=== PATIENT | male | born 1940 | race African-American/Black ===

== ENCOUNTER → 2017-03-02 | Outpatient (CLI) | payer OTHER ==
[~2017-03-02] MED LIST: ALLOPURINOL 30300 M2 PO; HYDRALAZINE 2525 MG PO; LEVOTHYROXINE 0.1 MG PO; LISINOPRIL20 MG PO; PLAVIX 75 MG TA75 M1 PO; PRINIVIL20 MG PO; TOPROL XL25 MG PO
== END ==
LOC: CAT 09:46
DX: I25.10 Atherosclerotic heart disease of native coronary artery without angina pectoris (principal); K42.9 Umbilical hernia without obstruction or gangrene

== ENCOUNTER → 2017-03-14 | Outpatient (CLI) | payer OTHER ==
[~2017-03-14] MED LIST changes: +CELEXA20 MG PO; +LOPRESSOR25 PO
--- NOTE | ~2017-03-14 | 2DMMODE ---
[facility] [address] [place] [address] 2 D/M-MODE ECHOCARDIOGRAM Name: MARIO JUÁREZ [id number] Admission: 03/14/17 Attend Phys: Sameer Barcenas Discharge: Date of : 36 Date of Service: 03/14/17 1500 Report #: [id number] THIS REPORT FOR: //name// APPROVED REPORT Study performed: 03/14/2017 13:59:14 EXAM: Comprehensive 2D, Doppler, and color-flow Echocardiogram Patient Location: Out-Patient Status: routine Other Information Study Quality: Fair Technically limited study due to body habitus. Exam done with patient in wheelchair. Echo Enhancing Agent Indication: Endocardial border delineation Agent(s) / Amount(s) Used: Definity 2 cc 2D Dimensions RVDd: 37.73 mm LVEF(%): 59.35 (>50%) IVSd: 14.83 (7-11mm) LVOT Diam: 21.63 (18-24mm) LVDd: 44.91 mm PWd: 13.08 (7-11mm) LVDs: 30.83 (25-40mm) Aortic Root: 40.57 mm Resendez's LVEF: 59.35 % Volumes Left Atrial Volume (Systole) Single Plane 4CH: 74.12 mL Single Plane 2CH: 86.21 mL LA ESV Index: 37.00 mL/m2 Aortic Valve AoV Peak Nik.: 1.66 m/s AO Peak Gr.: 10.98 mmHg LVOT Max P.29 mmHg LVOT Max V: 1.44 m/s GORDON Vmax: 3.19 cm2 Mitral Valve E/A Ratio: 0.8 MV Decel. Time: 447.22 ms MV E Max Nik.: 0.61 m/s [facility] [place] [address] 2 D/M-MODE ECHOCARDIOGRAM Name: MARIO JUÁREZ Room #: REG Beka#: [id number] Admission: 03/14/17 Attend Phys: Sameer Barcenas Discharge: Date of : 36 Date of Service: 03/14/17 1500 Report #: [id number] MV A Nik.: 0.79 m/s MV PHT: 129.69 ms Pulmonary Valve PV Peak Nik.: 1.11 m/s PV Peak Gr.: 4.94 mmHg Tricuspid Valve RAP Estimate: 5.00 mmHg Left Ventricle The left ventricle is normal size. Mild to moderate concentric left ventricular hypertrophy. Left ventricular systolic function is normal. LVEF is 55%. Grade I - abnormal relaxation pattern. Right Ventricle Right ventricle is not well visualized. Atria Left atrium is mildly dilated. The right atrium size is normal. Aortic Valve The Aortic valve is sclerotic. Mild aortic regurgitation. There is no aortic valvular stenosis. Mitral Valve The mitral valve is normal in structure. Mild mitral regurgitation. Tricuspid Valve The tricuspid valve is normal in structure. There is no tricuspid valve regurgitation noted. Pulmonic Valve The pulmonary valve is normal in structure. Trace pulmonic regurgitation. Great Vessels Aortic root is 4.1cm Ascending aorta is not well visualized. IVC is normal in size and collapses >50% with inspiration. Pericardium There is no pericardial effusion. <Conclusion> [facility] [address] [place] [address] 2 D/M-MODE ECHOCARDIOGRAM Name: MARIO JUÁREZ [facility] [id number] Admission: 03/14/17 Attend Phys: Sameer Barcenas Discharge: Date of : 36 Date of Service: 03/14/17 1500 Report #: [id number] The left ventricle is normal size. LVEF is 55%. Right ventricle is not well visualized. Left atrium is mildly dilated. The Aortic valve is sclerotic. Mild aortic regurgitation. The mitral valve is normal in structure. Mild mitral regurgitation. The tricuspid valve is normal in structure. The pulmonary valve is normal in structure. Trace pulmonic regurgitation. Aortic root is 4.1cm Ascending aorta is not well visualized. <ELECTRONICALLY SIGNED> By: Sameer Hart MD 03/14/171499 1500 Gerard Hart MD /INF
== END ==
LOC: CV 12:58
DX: Z01.818 Encounter for other preprocedural examination (principal)

== ENCOUNTER 2017-03-16 05:36 | Inpatient (IN) | payer OTHER ==
[~2017-03-16] VITALS: Ht 175.3 cm; Wt 127.6 kg
--- NOTE | ~2017-03-16 | O ---
[facility] [place] [address] [place] [address] OPERATIVE REPORT Name: MARIO JUÁREZ Room #: 453-P [facility] IN M.R.#: [id number] Admission: 03/16/17 Attend Phys: Jarret Renteria MD Discharge: Date of : 36 Report #: [id number] THIS REPORT FOR: //name// CC: Stan Renteria DATE OF SERVICE: 03/16/2017 PREOPERATIVE DIAGNOSES: 1. Incarcerated ventral hernia, symptomatic. 2. Abdominal pain. POSTOPERATIVE DIAGNOSES: 1. Incarcerated ventral hernia. 2. Significant intra-abdominal adhesions with chronic inflammatory response along the anterior abdominal wall surrounding and interloop abscess. 3. Small-bowel perforation, which had been contained by several loops of bowel. 4. Foreign body protruding from bowel in the center of this inflammatory process consistent with chronic perforation. 5. Intra-abdominal interloop abscess. SURGEON: Waldemar Green MD REGIONAL LIAISON: Iván Fortune MD ANESTHESIA: General endotracheal anesthesia and local anesthetic. ESTIMATED BLOOD LOSS: 200 mL. IV FLUIDS: 2500 of crystalloid. URINE OUTPUT: 150 mL per Reinoso catheter. PROCEDURES PERFORMED: 1. Robotic lysis of adhesions, time 75 minutes. 2. Robotic drainage of interloop abscess. 3. Robotic extraction of small-bowel foreign body. 4. Conversion to exploratory laparotomy. 5. Small-bowel resection times 3 with primary anastomosis. 6. Application of external negative pressure therapy device (Prevena device). SPECIMENS TO PATHOLOGY: 1. Culture of the anterior abdominal wall interloop abscess. 2. Mid jejunum, small-bowel resection 24 cm. 3. Distal jejunum, small-bowel resection 8 cm. 4. Ileal or ileum, small-bowel resection of 10 cm. [facility] [address] [place] [address] OPERATIVE REPORT Name: MARIO JUÁREZ Room #: 453-P [facility] IN [facility].#: [id number] Admission: 03/16/17 Attend Phys: Jarret Renteria MD Discharge: Date of : 38 Report #: [id number] 5. Incarcerated ventral hernia contents. 6. Interloop foreign body, which appeared grossly consistent with a wooden toothpick. COMPLICATIONS: None applicable. DISPOSITION: Guarded to critical care telemetry postoperative. INDICATIONS FOR PROCEDURE: The patient is a very pleasant 77-year-old gentleman, who was referred for abdominal pain and an incarcerated hernia recently. He had reported a chronic hernia in the region of his mid abdomen, which had become more symptomatic over the past 2 weeks. On exam, this was easily palpable and showed no signs of acute peritonitis. He had also shown no symptoms of bowel obstruction. He was quite interested in surgical repair of this hernia and the patient was referred to preanesthesia evaluation for preoperative clearance. Detailed discussion of the risks and benefits of the operation including bleeding, pain, infection, recurrence of the hernia, post-damage to surrounding structures such as bowel, bladder, kidney, ureter, colon, stomach, liver and other nearby structures were all possible, although unlikely, possible need to convert to open, possible need for ostomy and other potentially unforeseen circumstances were all discussed and all questions were answered to the patient's and his family's satisfaction. Written informed consent was obtained. PROCEDURE: The patient was brought to the operating room and placed in a supine position. Timeout was taken to verify the patient's identity and to plan the procedure. SCDs were in place on the lower extremities bilaterally. Preoperative antibiotics were administered. Anesthesia was induced. The patient was intubated. Abdomen was sterilely prepped and draped in standard fashion after hair had been previously clipped using electric clippers prior to sterile prep. A right upper quadrant 5-mm incision was made after local anesthetic had been infiltrated. Direct visual access using a transparent plastic trocar was utilized to enter the peritoneal cavity. Pneumoperitoneum was created and inspection of the viscera showed that no injury had occurred upon entry. There was a significant process of adhesions of small-bowel up around the anterior abdominal wall, especially near the umbilicus, which had not been expected. A right lower quadrant 5-mm port was placed under direct visualization and this was upsized to an 8-mm robotic port. A right lateral 12-mm port was placed under direct visualization using a bariatric trocar. The right upper quadrant 5-mm port was then upsized to an 8-mm robotic port. [place] robotic patient cart was then brought into the field and docked properly. The patient had been placed in the slight reverse Trendelenburg position. Robotic lysis of adhesions was then performed and upon taking down some of the loops of bowel and omentum, which were adherent up to the anterior abdominal wall, a pocket of purulence was encountered. This was burns to off white purulence. Culture was obtained and sent off for microbiologic analysis. [address] [address] OPERATIVE REPORT Name: MARIO JUÁREZ Room #: 453-P ADM IN M.Roxy.#: [id number] Admission: 03/16/17 Attend Phys: Jarret Renteria MD Discharge: Date of : 38 Report #: [id number] Further lysis of adhesions was performed in a painstaking meticulous fashion using sharp dissection, blunt dissection and electrocautery with care to preserve the loops of bowel. Upon exploring the central portion of this inflammatory mass, which contained multiple loops of adherent up around this purulent pocket, a foreign body was identified, initially this was thought to be potentially a poorly digested pill; however, as this was extracted from that site, it became clear that this was a wooden toothpick by visualization, this was extracted and passed off for pathologic analysis. Further inspection of that region showed that there had been what appeared to be a chronic perforation of the small-bowel from that object and this was the source of the significant inflammatory response. Further lysis of adhesions was performed and these loops of bowel were taken down around this region and it was noted that at least 3 areas of small-bowel appeared questionable as far as their viability secondary to the above-mentioned processes. This inflammatory region was also noted to be just deep to the ventral hernia, which had been the initial reason for the operation. The bowel loops were reduced from this area and intraoperative photographs were taken of the ventral hernia defect. Adipose tissue consistent with preperitoneal fat and omentum was reduced from the hernia defect and passed off as incarcerated ventral hernia contents. At this point, inspection of the small-bowel showed that at least 3 areas of question of viability were noted including the area that had been chronically perforated with the foreign body and therefore, decision was made to undock the robotic patient cart device and converted to exploratory laparotomy for planned small bowel resection. The small-bowel was run from ligament of Treitz distal and 3 separate areas showed significant either serosal tears or that perforation as previously described. Small-bowel resection was performed at each of these 3 sites. Initially, the mid jejunum, which had the apparent chronic perforation was resected first using linear cutting stapler with euye-il-fbas anastomosis with blue loads. A 24-cm was resected and primary anastomosis was performed. Further along the distal jejunum, there was another site of significant serosal injury, which did not appear amenable to repair secondary to the friable, chronically edematous nature of that area of the small-bowel, therefore an 8-cm distal jejunal small-bowel resection was performed in similar fashion. Further along toward the mid ileum, a 10-cm section was resected in similar fashion. At each of the sites, the staple line was oversewn with 3-0 PDS imbricating suture. The mesenteric resections had been performed using a LigaSure impact energy device. Hemostasis was also verified along the mesentery at each of these resections and along the mid jejunal mesenteric resection. This was oversewn with 3-0 running PDS locking suture for added hemostatic affect. The small-bowel was then run from terminal ileum back toward the ligament of Treitz on multiple passes and no other obvious areas of injury or perforation were identified. The intraabdominal cavity was then irrigated with copious warm sterile saline and suctioned clear. Tisseel fibrin sealant device was placed over each of the anastomoses and viscera was replaced back into the abdominal cavity. Nasogastric tube was placed within the gastric lumen and this was palpated to be within the body of the stomach. At this point, the abdominal [address] [address] OPERATIVE REPORT Name: MARIO JUÁREZ Room #: 453-P [facility] IN M.R.#: [id number] Admission: 03/16/17 Attend Phys: Jarret Renteria MD Discharge: Date of : 38 Report #: [id number] cavity was closed with a looped #1 PDS running suture times 2, which were joined at the central portion of the incision. Wound was then irrigated with further copious sterile saline and suctioned clear. Skin was closed using skin gerardo. A Prevena external negative pressure therapy device was applied over the incision. The 3 robotic ports along the right lateral abdominal wall were also closed using gerardo and sterile dressings were applied superficial to this. At this point, the case was ended, all instrumentation had been extracted and accounted for. All counts were correct per nursing report. The patient was extubated and taken to the postoperative care unit in stable condition. By: 0915 1248 Waldemar Green MD /mohinder
--- NOTE | ~2017-03-16 | S ---
[facility] [address] [place] [address] SURGICAL PATH RPT PROCEDURE Name: MARIO JUÁREZ Room #: 453-P ADM IN M.R.#: [id number] Admission: 03/16/17 Date of : 36 Discharge: Report #: [id number] Path Case #: [id number] PATHOLOGY REPORT COLLECTION DATE: 03/16/2017 RECEIVED DATE: 03/16/2017 SUBMITTING PHYS: Dr. Waldemar Green OTHER PHYS: Dr. Iván Mancera SPECIMEN(S) RECEIVED: A.Foreign body in the abdominal wall interloop abscess B.Incarcerated hernia sac contents C.Ileum D.Mid jejunum E.Distal jejunum * * * * * * * * * * * * FINAL DIAGNOSIS: A Foreign body in the abdominal wall intra-loop abscess, removal: - 5.2 cm firm material, compatible with foreign body. (GROSS EXAM ONLY) B. Incarcerated hernia sac contents: - Abundant fat necrosis and reactive changes, compatible with hernia sac contents. C. Small bowel, ileum, resection: - Congested small bowel associated with chronic inflammation and fat necrosis of the adipose tissue. - Margins of resection showing viable mucosa. - Negative for dysplasia or malignancy. D. Small bowel, mid jejunum, resection: - Marked acute serositis along with extensive fibrous adhesions as well as abscess formation within bowel wall including perforation. - Margins of resection showing viable mucosa. - Negative for dysplasia or malignancy. E. Small bowel, distal jejunum, resection: - Marked serositis along with fibrous adhesions as well as congested bowel wall including a perforation. - Margins of resection showing viable mucosa. - Negative for dysplasia or malignancy. (IUV:csd; d/t: 03/19/2017) PATHOLOGIST: Michelle Louise M.D. REPORT ELECTRONICALLY SIGNED BY: Michelle Louise M.D. DATE/TIME: 03/19/2017 16:41 * * * * * * * * * * * * [facility] [address] [place] [address] SURGICAL PATH RPT PROCEDURE Name: FRANCKMARIO Angus Room #: 453-P [facility] IN [facility]#: [id number] Admission: 03/16/17 Date of : 36 Discharge: Report #: [id number] Path Case #: [id number] GROSS PATHOLOGY: A. The specimen is received in formalin labeled "Mario Franck, foreign body in the abdominal wall intraloop abscess". Received is a segment of shepherd-burns possible wood measuring 5.2 cm in length by 0.3 cm in diameter. A gross photograph is taken. Sections are not submitted. B. Received in formalin labeled "Mario Franck, incarcerated hernia sac contents," is a piece of fibroadipose tissue measuring 1.8 x 1.0 x 0.2 cm. No nodules or lesions are identified. The specimen is submitted entirely in cassette B1. C. The specimen is received in formalin labeled "Mario Franck, ileum". Received is an unoriented segment of small bowel measuring 10.2 cm in length by 2.8 cm in diameter. Both margins are stapled closed. The attached mesenteric fat measures 2.3 cm in thickness. The serosal surface is pink-burns, smooth and glistening in appearance. The specimen is opened along the antimesenteric line to reveal a light burns to pink-burns and slightly edematous mucosa with normal architectural folds. No distinct nodules or lesions are noted grossly. Sectioning through the attached mesenteric fat reveals no readily identifiable lymph nodes. The specimen is submitted representatively as follows: C1 consumer sales representative section from each margin C2-C3 consumer sales representative cross-sections of mucosa. D. The specimen is received in formalin labeled "Alpha Franck, mid jejunum". Received is a segment of small bowel, which is partially adhesed onto itself, measuring 21.2 cm in length by 2.8 cm in diameter. Both margins are stapled closed. The mesenteric fat measures up to 3.7 cm in thickness. The serosal surface is pink-shepherd in appearance displaying 2 circular defects, the first of which measures 2.1 x 1.1 cm located 3.5 cm from the closest stapled margin, and the second of which measures 1.1 x 1.0 cm located 4.7 cm from the opposite margin. The specimen is opened along the antimesenteric line to reveal a pale burns to pink-burns mucosa with normal architectural folds. No distinct nodules or lesions are noted grossly. Sectioning through the adhesed area reveals a possible abscess cavity within the soft tissue measuring approximately 1.0 cm. Sectioning through the attached pericolic fat reveals no readily identifiable lymph nodes. The specimen is submitted representatively as follows: D1 consumer sales representative section from each margin D2 consumer sales representative sections through first circular defect D3 consumer sales representative sections through second circular defect D4 consumer sales representative section through adhesed/abscessed area D5 consumer sales representative cross-sections of mucosa. E. The specimen is received in formalin labeled "Alpha Franck, distal jejunum". Received is a segment of small bowel measuring 7.3 cm in length by 2.7 cm in diameter. The serosal surface is pink-burns [facility] [address] [place] [address] SURGICAL PATH RPT PROCEDURE Name: MARIO JUÁREZ Room #: 453-P ADM IN M.R.#: [id number] Admission: 03/16/17 Date of : 36 Discharge: Report #: [id number] Path Case #: [id number] in appearance with a slight amount of overlying adhesions and displays a circular defect measuring 1.8 x 1.5 cm, located 3.3 cm from the closest margin. The attached mesenteric fat measures up to 2.3 cm in thickness. The specimen is opened along the antimesenteric line to reveal a light burns, slightly edematous mucosa with normal architectural folds. No distinct nodules or lesions are noted grossly. Sectioning through the attached mesenteric fat reveals no readily identifiable lymph nodes. The specimen is submitted representatively as follows: E1 consumer sales representative section from each margin E2 consumer sales representative sections through circular defect E3 consumer sales representative cross-sections of mucosa. (CAA; 03/17/2017) CLINICAL HISTORY: Ventral hernia, abdominal intraloop adhesions INITIAL CPT CODE(S): A; 34084 B; 79291 C; 41300 D; 84433 E; 10162 Professional services performed by [facility] at [place] [address], [place] [address] Technical services performed by [facility] at [address] [place] [address], [address] [address]. [facility] [address] [place] [address] PHONE: [phone] DIRECTOR: Ken Wiggins M.D. * * * END OF REPORT * * *
[2017-03-16 06:41] LABS: HEMATOCRIT 33.5 % (42.0-52.0); HEMOGLOBIN 10.9 gm/dL (14.0-18.0)
[2017-03-16 07:00] VITALS: BP 116/45
[2017-03-16 14:00] LABS: ABSOLUTE NEUTROPHILS 14.3 thou/uL (1.4-8.2); BASOPHILS 0.2 % (0.0-2.0); EOSINOPHILS 0.1 % (0.0-3.0); HEMATOCRIT 38.8 % (42.0-52.0); HEMOGLOBIN 12.5 gm/dL (14.0-18.0); LYMPHOCYTES 10.3 % (24.0-44.0); MCH 30.4 pg (26.0-34.0); MCHC 32.1 g/dL (28.0-37.0); MCV 94.6 fL (80.0-100.0); MONOCYTES 7.1 % (1.0-8.0); PLATELET COUNT 339 thou/uL (150-400); POLYS 82.3 % (36.0-66.0); RDW 14.5 % (10.5-14.5); WBC 17.3 thou/uL (4.0-11.0)
[2017-03-16 14:02] LABS: MANUAL DIFF NO
[2017-03-16 14:17] LABS: ALBUMIN 2.8 g/dL (3.4-5.0); CALCIUM 8.6 mg/dL (8.5-10.1); CREATININE 1.2 mg/dL (0.7-1.3); MAGNESIUM 1.9 mg/dL (1.8-2.4); TOTAL BILIRUBIN 0.3 mg/dL (<0.1-1.0); TOTAL PROTEIN 6.6 g/dL (6.4-8.2)
[2017-03-16 14:26] LABS: ABG SAMPLE TYPE ARTERIAL; BE(vivo) -3.1 mmol/L (-2 to +3); HCO3 22.8 mmol/L (22.0-26.0); LACTATE 1.44 mmol/L (0.5-2.0); O2(CT) 17.5 mL/dL (15.0-23.0); O2Hb 93.9 % (92.0-98.0); PO2 82.3 mmHg (80.0-100.0); STICK SITE L.RADIAL; pH 7.332 (7.360-7.450); sO2 95.4 % (92.0-98.0); tCO2 24.1 mmol/L (24.0-30.0)
[2017-03-16 15:03] VITALS: BP 143/75
[2017-03-16 21:09] VITALS: BP 196/89
[2017-03-16 21:46] VITALS: BP 134/75
[2017-03-17] VITALS (10 sets, daily range): BP systolic 148–190; BP diastolic 67–90
[2017-03-17 05:47] LABS: HEMATOCRIT 33.4 % (42.0-52.0); HEMOGLOBIN 10.8 gm/dL (14.0-18.0); MCHC 32.4 g/dL (28.0-37.0); MCV 92.5 fL (80.0-100.0); RBC 3.61 mil/uL (4.50-6.00); RDW 14.2 % (10.5-14.5); WBC 23.2 thou/uL (4.0-11.0)
[2017-03-17 06:00] LABS: INR 1.1; PROTIME 11.5 Seconds (9.3-11.4)
[2017-03-17 06:12] LABS: ALBUMIN 2.5 g/dL (3.4-5.0); CALCIUM 8.4 mg/dL (8.5-10.1); CREATININE 1.2 mg/dL (0.7-1.3); POTASSIUM 4.5 mmol/L (3.5-5.1); TOTAL BILIRUBIN 0.5 mg/dL (<0.1-1.0); TOTAL PROTEIN 5.9 g/dL (6.4-8.2)
[2017-03-18] VITALS (7 sets, daily range): BP systolic 14–200; BP diastolic 64–120
[2017-03-18 06:06] LABS: HEMATOCRIT 30.4 % (42.0-52.0); HEMOGLOBIN 9.8 gm/dL (14.0-18.0); MCH 30.1 pg (26.0-34.0); MCHC 32.2 g/dL (28.0-37.0); MCV 93.5 fL (80.0-100.0); PLATELET COUNT 237 thou/uL (150-400); RBC 3.26 mil/uL (4.50-6.00); RDW 14.5 % (10.5-14.5); WBC 18.1 thou/uL (4.0-11.0)
[2017-03-18 06:17] LABS: CALCIUM 8.4 mg/dL (8.5-10.1); CREATININE 1.1 mg/dL (0.7-1.3); POTASSIUM 4.1 mmol/L (3.5-5.1)
[2017-03-18 07:23] LABS: MANUAL DIFF YES
[2017-03-18 10:57] LABS: ABSOLUTE NEUTROPHILS 15.4 thou/uL (1.4-8.2); ANISOCYTOSIS SLIGHT; TOTAL CELL COUNT 100
[2017-03-19 05:59] LABS: ABSOLUTE NEUTROPHILS 11.8 thou/uL (1.4-8.2); BASOPHILS 0.2 % (0.0-2.0); EOSINOPHILS 2.5 % (0.0-3.0); HEMATOCRIT 31.3 % (42.0-52.0); MCHC 31.9 g/dL (28.0-37.0); MONOCYTES 9.2 % (1.0-8.0); PLATELET COUNT 220 thou/uL (150-400); POLYS 77.1 % (36.0-66.0); RBC 3.33 mil/uL (4.50-6.00); RDW 14.3 % (10.5-14.5); WBC 15.3 thou/uL (4.0-11.0)
[2017-03-19 06:01] LABS: MANUAL DIFF NO
[2017-03-19 06:05] VITALS: BP 188/97
[2017-03-19 06:07] LABS: CALCIUM 8.3 mg/dL (8.5-10.1); CREATININE 1.1 mg/dL (0.7-1.3); POTASSIUM 4.2 mmol/L (3.5-5.1)
[2017-03-19 09:18] VITALS: BP 132/69
[2017-03-19 13:35] VITALS: BP 140/70
[2017-03-19 16:17] VITALS: BP 162/78
[2017-03-20] VITALS (9 sets, daily range): BP systolic 154–191; BP diastolic 65–91
[2017-03-20 06:31] LABS: ABSOLUTE NEUTROPHILS 9.3 thou/uL (1.4-8.2); BASOPHILS 0.4 % (0.0-2.0); EOSINOPHILS 4.3 % (0.0-3.0); HEMATOCRIT 30.4 % (42.0-52.0); HEMOGLOBIN 9.9 gm/dL (14.0-18.0); LYMPHOCYTES 13.2 % (24.0-44.0); MCH 30.4 pg (26.0-34.0); MCHC 32.7 g/dL (28.0-37.0); MONOCYTES 10.6 % (1.0-8.0); PLATELET COUNT 218 thou/uL (150-400); POLYS 71.5 % (36.0-66.0); RBC 3.27 mil/uL (4.50-6.00); RDW 14.2 % (10.5-14.5)
[2017-03-20 06:33] LABS: MANUAL DIFF NO
[2017-03-20 06:42] LABS: CALCIUM 8.2 mg/dL (8.5-10.1); CREATININE 1.1 mg/dL (0.7-1.3); POTASSIUM 4.2 mmol/L (3.5-5.1)
[2017-03-21 04:45] VITALS: BP 161/69
[2017-03-21 08:28] VITALS: BP 168/54
[2017-03-21 16:43] VITALS: BP 159/51
[2017-03-21 20:15] VITALS: BP 141/8
[2017-03-22 06:07] LABS: ABSOLUTE NEUTROPHILS 6.6 thou/uL (1.4-8.2); BASOPHILS 0.7 % (0.0-2.0); EOSINOPHILS 5.2 % (0.0-3.0); HEMATOCRIT 30.4 % (42.0-52.0); HEMOGLOBIN 10.1 gm/dL (14.0-18.0); MCH 30.8 pg (26.0-34.0); MCHC 33.2 g/dL (28.0-37.0); MCV 92.8 fL (80.0-100.0); MONOCYTES 11.5 % (1.0-8.0); PLATELET COUNT 212 thou/uL (150-400); POLYS 64.6 % (36.0-66.0); RBC 3.27 mil/uL (4.50-6.00); RDW 14.1 % (10.5-14.5); WBC 10.2 thou/uL (4.0-11.0)
[2017-03-22 06:08] VITALS: BP 187/72
[2017-03-22 06:12] LABS: MANUAL DIFF NO
[2017-03-22 06:38] LABS: CALCIUM 8.2 mg/dL (8.5-10.1); CREATININE 1.2 mg/dL (0.7-1.3)
[2017-03-22 16:00] VITALS: BP 158/70
[2017-03-22 19:57] VITALS: BP 149/55
[2017-03-23 05:16] LABS: HEMATOCRIT 28.5 % (42.0-52.0); HEMOGLOBIN 9.6 gm/dL (14.0-18.0); MCH 30.6 pg (26.0-34.0); MCHC 33.6 g/dL (28.0-37.0); MCV 91.1 fL (80.0-100.0); RBC 3.13 mil/uL (4.50-6.00); RDW 14.3 % (10.5-14.5)
[2017-03-23 05:21] VITALS: BP 153/76
[2017-03-23 05:31] LABS: CALCIUM 8.1 mg/dL (8.5-10.1); CREATININE 1.1 mg/dL (0.7-1.3); POTASSIUM 3.4 mmol/L (3.5-5.1)
[2017-03-23 08:00] VITALS: BP 163/58
[2017-03-23] MEDS ORDERED: BENAZEPRIL HCL20 MG PO (15:37)
[2017-03-23] MEDS ORDERED: HYDRALAZINE 5050 MG PO (15:37)
[2017-03-23] MEDS ORDERED: COLACE 100 MG100 MG PO (15:38)
[2017-03-23] MEDS ORDERED: HYDROCODON-ACE1 EAC7 PO (15:38)
[2017-03-23] MEDS ORDERED: ACIDOPHILUS1 EAC4 PO (15:38)
[2017-03-23] MEDS ORDERED: PEPCID20 MG PO (15:38)
== END 2017-03-23 17:58 | DRG 853 ==
LOC: OR 05:36 → TBA 05:36 → OR 09:00 → 4W 15:29 → 4S 03-20 01:27
PROVIDERS: Hospitalist; Internal Medicine; Nurse Practitioner Family; Otolaryngology; Surgery
PROC: 0DT80ZZ Resection of Small Intestine, Open Approach (ICD-10-PCS; principal; 2017-03-16)
PROC: 0WUF0JZ Supplement Abdominal Wall with Synthetic Substitute, Open Approach (ICD-10-PCS; principal; 2017-03-16)
PROC: 0W9F0ZZ Drainage of Abdominal Wall, Open Approach (ICD-10-PCS; principal; 2017-03-16)
PROC: 8E0W0CZ Robotic Assisted Procedure of Trunk Region, Open Approach (ICD-10-PCS; principal; 2017-03-16)
PROC: 0DNS0ZZ (ICD-10-PCS; principal; 2017-03-16)
PROC: 02HV33Z Insertion of Infusion Device into Superior Vena Cava, Percutaneous Approach (ICD-10-PCS; 2017-03-20)
PROC: B548ZZA Ultrasonography of Superior Vena Cava, Guidance (ICD-10-PCS; 2017-03-20)
DX: A41.9 Sepsis, unspecified organism (principal); K63.1 Perforation of intestine (nontraumatic); E43 Unspecified severe protein-calorie malnutrition; K43.6 Other and unspecified ventral hernia with obstruction, without gangrene; Z68.41 Body mass index [BMI] 40.0-44.9, adult; K66.0 Peritoneal adhesions (postprocedural) (postinfection); I10 Essential (primary) hypertension; K59.00 Constipation, unspecified; I25.10 Atherosclerotic heart disease of native coronary artery without angina pectoris; F32.9 Major depressive disorder, single episode, unspecified; E03.9 Hypothyroidism, unspecified; M10.9 Gout, unspecified; Z79.899 Other long term (current) drug therapy; Z89.021 Acquired absence of right finger(s); I25.2 Old myocardial infarction; Z98.62 Peripheral vascular angioplasty status; Z86.73 Personal history of transient ischemic attack (TIA), and cerebral infarction without residual deficits; Z98.49 Cataract extraction status, unspecified eye
CPT/HCPCS: 10045; 10100; 27001; 49000; 50010; 50093; 50101; 50249; 50386; 50455; 50555; 50558; 50953; 51412; 51420; 51435; 51437; 51489; 51708; 51712; 51714; 52265; 54022; 54118; 56462; 56525; 56526; 56527; 56530; 57092; 62110; 62900; 70005

== ENCOUNTER 2018-03-04 12:45 | Inpatient (IN) | payer OTHER ==
[2018-03-04] VITALS (8 sets, daily range): BP systolic 124–145; BP diastolic 40–57
[~2018-03-04] VITALS: Ht 180.3 cm; Wt 118.6 kg
--- NOTE | ~2018-03-04 | 2DMMODE ---
[facility] [address] [place] [address] 2 D/M-MODE ECHOCARDIOGRAM Name: MARIO JUÁREZ Room #: 217-P [facility] IN ..#: [id number] Admission: 03/04/18 Attend Phys: El Boss MD Discharge: Date of : 36 Date of Service: 03/05/18 1205 Report #: [id number] THIS REPORT FOR: //name// APPROVED REPORT Study performed: 03/05/2018 09:57:26 EXAM: Comprehensive 2D, Doppler, and color-flow Echocardiogram Patient Location: Bedside Room #: [facility] Status: routine BSA: 2.36 HR: 83 bpm BP: 129/48 mmHg Rhythm: Irregular Other Information Study Quality: Adequate/low parasternal window Technically limited study due to morbid obesity.. Indications Afib/tachybrady syndrome. Hx: CAD, stent, CVA, PAF, HTN 2D Dimensions RVDd: 42.67 mm LVEF(%): 52.27 (>50%) IVSd: 14.35 (7-11mm) LVOT Diam: 22.31 (18-24mm) LVDd: 39.94 mm PWd: 15.10 (7-11mm) LVDs: 29.40 (25-40mm) Aortic Root: 41.09 mm Resendez's LVEF: 52.27 % Volumes Left Atrial Volume (Systole) Single Plane 4CH: 56.60 mL Single Plane 2CH: 104.03 mL LA ESV Index: 34.00 mL/m2 Aortic Valve AoV Peak Nik.: 2.87 m/s AO Peak Gr.: 32.86 mmHg Mitral Valve E/A Ratio: 0.6 MV Decel. Time: 224.81 ms [facility] [address] [place] [address] 2 D/M-MODE ECHOCARDIOGRAM Name: MARIO JUÁREZ Room #: 217-P [facility] IN ..#: [id number] Admission: 03/04/18 Attend Phys: El Boss MD Discharge: Date of : 36 Date of Service: 03/05/18 1205 Report #: [id number] E Max Nik.: 0.73 m/s MV A Nik.: 1.21 m/s MV PHT: 65.20 ms IVRT: 110.73 ms Tricuspid Valve TR Peak Nik.: 3.19 m/s RAP Estimate: 5.00 mmHg TR Peak Gr.: 40.65 mmHg PA Pressure: 45.00 mmHg Left Ventricle The left ventricle is normal size. Moderate concentric left ventricular hypertrophy. Left ventricular systolic function is hyperdynamic. Systolic anterior motion of the mitral vavle/chordes causing an LVOT gradient. Peak velocity of 6.9m/s with a peak gradient of 192mmHg. LVEF is >70%. Mild diastolic dysfunction is present (impaired relaxation pattern). Right Ventricle The right ventricle is normal size. The right ventricular systolic function is normal. Atria Left atrium is mildly dilated. Right atrium is mildly dilated. Aortic Valve Aortic valve is sclerotic but appears to have adequate excursion. Mild aortic regurgitation. Mitral Valve The mitral valve is normal in structure. Systolic anterior motion of the vavle/chordes causing an LVOT gradient. Peak velocity of 6.9m/s with a peak gradient of 192mmHg. Moderate mitral regurgitation. Eccentric jet. Difficult to assess. Tricuspid Valve The tricuspid valve is normal in structure. Trace to mild tricuspid regurgitation. Estimated PAP is 45mmHg. Pulmonic Valve Pulmonic valve is not well visualized. Great Vessels Aortic root is dilated at 4.1cm. Ascending aorta is not well visualized. IVC is normal in size and collapses >50% with [facility] [address] [place] [address] 2 D/M-MODE ECHOCARDIOGRAM Name: MARIO JUÁREZ Room #: 217-P [facility] IN ..#: [id number] Admission: 03/04/18 Attend Phys: El Boss MD Discharge: Date of : 36 Date of Service: 03/05/18 1205 Report #: [id number] inspiration. Pericardium There is no pericardial effusion. <Conclusion> The left ventricle is normal size. LVEF is >70%. Left atrium is mildly dilated. Right atrium is mildly dilated. Aortic valve is sclerotic but appears to have adequate excursion. Mild aortic regurgitation. The mitral valve is normal in structure. Systolic anterior motion of the vavle/chordes causing an LVOT gradient. Peak velocity of 6.9m/s with a peak gradient of 192mmHg. Moderate mitral regurgitation. Eccentric jet. Difficult to assess. The tricuspid valve is normal in structure. Trace to mild tricuspid regurgitation. Estimated PAP is 45mmHg. Pulmonic valve is not well visualized. There is no pericardial effusion. <ELECTRONICALLY SIGNED> By: Sameer Hart MD 03/05/18 1205 1205 1205 Sameer Hart MD /INF
--- NOTE | ~2018-03-04 | CATHLAB ---
[facility] [address] [place] [address] INVASIVE PROCEDURE REPORT Name: MARIO JUÁREZ Room #: 217-P DIS IN ..#: [id number] Admission: 03/04/18 Attend Phys: El Boss MD Discharge: 03/07/18 Date of : 36 Date of Service: 03/08/18 1351 Report #: [id number] THIS REPORT FOR: //name// APPROVED REPORT Study performed: 03/06/2018 12:54:08 Patient Status: In-Patient Room #: 217 Event Personnel: Sameer Hart Glass Silverer, Raghav Smith Mahmood, Amber Monitor, Mere Augustin RN RN Exam: Insertion of Dual Chamber Permanent Pacemaker Indications: sick sinus syndrome with symptomatic tachy-lala syndrome The patient is a 78 year-old male with a history of Sick Sinus Syndrome with hx afib rvr treated medically now with symptomatic bradycardia. Patient Info NYHA Heart Class: I Conscious Sedation Start time: 14:24 End Time: 15:18 Versed 2 mg Implanted Devices: St Blake PM240 serial number [id number] RA lead: 2088TC/52 serial number [id number] RV lead: 58 serial number: [id number] Procedure The patient underwent informed consent. We discussed the details of the procedure including the risks, which include, but not limited to bleeding, infection, vascular damage, cardiac perforation, and pneumothorax. He understood these risks and was willing to proceed. As such, he was brought to the EP/Cardiac Catheterization laboratory in a fasting and sedated state and prepped and draped in a The patient underwent conscious sedation anesthesia, with no anesthesia related complications. The patient underwent conscious sedation, with no related complications. The patient was brought to the EP/Cardiac Catheterization laboratory and the left chest and shoulder were prepped and draped in a sterile manner. During this case, Fluoroscopy and no contrast were used for [address] [address] INVASIVE PROCEDURE REPORT Name: MARIO JUÁREZ Room #: 217-P DIS IN .R.#: [id number] Admission: 03/04/18 Attend Phys: El Boss MD Discharge: 03/07/18 Date of : 36 Date of Service: 03/08/18 1351 Report #: [id number] imaging. The left subclavian region was infiltrated with 2% Lidocaine subcutaneous anesthesia. A transverse incision was made in the left upper chest cavity. The subcutaneous pocket was formed via blunt dissection. Percutaneous venous access was achieved and an introducer sheath was inserted into the left Subclavian vein. Sheaths were positions using the modified Seldinger technique Through the introducer sheaths the atrial and ventricular lead wires were positioned in the right atrial appendage and right ventricular apex respectively. Utilizing fluoroscopic guidance, the atrial and ventricular lead wires were advanced over the wires and positioned in the right atria and right ventricle respectively. Capturing and sensing thresholds were verified. Electrode Parameters P Wave: 4.4 R Wave: 8.2 Atrial Threshold: 0.5 Ventricular Threshold: 0.8 Atrial Resistance: 401 Ventricular Resistance: 1106 Dual Chamber The atrial and ventricular leads were then secured using 2.0 ethibond sutures. The subcutaneous pocket was irrigated with ancef antibiotic solution.The atrial and ventricular leads were attached to the appropriate receptacles on the pulse generator and set screws firmly tightened to insure adequate contact and stability. The lead and pulse generator were placed into the subcutaneous pocket. Sharp and sponge counts were confirmed to be correct. At this time the pocket was closed subcutaneously with a 2.0 Nurolon and the skin was closed with a 3.0 Vicryl. The operative site was dressed in sterile fashion with steri strips,4x4,op-site and the patient was transferred to the floor in stable condition. Complications The patient tolerated the procedure well and there were no complications associated with the procedure. Findings Specimens Removed: No Estimated Blood Loss: 5 mL Conclusion 1. Successful implantation of a dual-chamber pacemaker [facility] [address] [place] [address] INVASIVE PROCEDURE REPORT Name: MARIO JUÁREZ Room #: 217-P DIS IN M.R.#: [id number] Admission: 03/04/18 Attend Phys: El Boss MD Discharge: 03/07/18 Date of : 36 Date of Service: 03/08/18 1351 Report #: [id number] Recommendations 1. Routine post-pacemaker protocol <ELECTRONICALLY SIGNED> By: Sameer Hart MD 03/08/18 135 50 50 Sameer Hart MD /INF
--- NOTE | ~2018-03-04 | EKG ---
[place] [address] [facility] [place] [address] ELECTROCARDIOGRAM REPORT Name: MARIO JUÁREZ Room #: 217-P ADM IN M.R.#: [id number] Admission: 03/04/18 Attend Phys: El Boss MD Discharge: Date of : 36 Report #: [id number] THIS REPORT FOR: //name// [facility] ED Test Date: 2018-03-04 Test Time: 13:43:07 Pat Name: MARIO JUÁREZ Department: Room: Gender: M [employer] Scheduler: jose enrique : 1940 Requested By: Rian Verde Order Number: [id number] MD: Nigel Taylor Measurements Intervals [place] Rate: 43 P: 24 [place]: 167 QRS: 35 QRSD: 106 T: 67 QT: 500 QTc: 423 Interpretive Statements Sinus bradycardia Atrial premature complexes in couplets Baseline wander in lead(s) II Compared to ECG 05/01/2015 13:35:12 Atrial premature complex(es) now present Electronically Signed On 03-05-2018 7:57:59 CDT by Nigel Taylor [email or web address] <ELECTRONICALLY SIGNED> By: Nigel Taylor MD, [facility] 03/05/18 0757 1343 1343 Nigel Taylor MD, [facility] /EPI
[~2018-03-04 12:45] MED LIST changes: +ACIDOPHILUS1 EAC4 PO; +BENAZEPRIL HCL20 MG PO; +COLACE 100 MG100 MG PO; +HYDRALAZINE 5050 MG PO; +HYDROCODON-ACE1 EAC7 PO; +PEPCID20 MG PO
[2018-03-04 13:16] LABS: URINE BILIRUBIN NEGATIVE (Negative); URINE BLOOD NEGATIVE (Negative); URINE CLARITY CLEAR; URINE COLOR YELLOW; URINE GLUCOSE-RANDOM* NEGATIVE (Negative); URINE KETONES NEGATIVE (Negative); URINE LEUKOCYTES NEGATIVE (Negative); URINE NITRITE NEGATIVE (Negative); URINE PROTEIN (DIPSTICK) NEGATIVE (Negative); URINE SPECIFIC GRAVITY 1.025 (1.005-1.035); URINE UROBILINOGEN 0.2 E.U./dl (0.2-1.0)
[2018-03-04 13:33] LABS: ABSOLUTE NEUTROPHILS 6.4 thou/uL (1.4-8.2); BASOPHILS 0.6 % (0.0-2.0); EOSINOPHILS 2.3 % (0.0-3.0); HEMATOCRIT 36.4 % (42.0-52.0); HEMOGLOBIN 12.1 gm/dL (14.0-18.0); LYMPHOCYTES 21.9 % (24.0-44.0); MCH 31.9 pg (26.0-34.0); MCHC 33.3 g/dL (28.0-37.0); MCV 95.8 fL (80.0-100.0); MONOCYTES 10.1 % (1.0-8.0); PLATELET COUNT 156 thou/uL (150-400); POLYS 65.1 % (36.0-66.0); RDW 14.9 % (10.5-14.5); WBC 9.9 thou/uL (4.0-11.0)
[2018-03-04 13:46] LABS: ANION GAP 6 mmol/L (7-16); BUN 26 mg/dL (7-18); CALCIUM 8.8 mg/dL (8.5-10.1); CHLORIDE 108 mmol/L (98-107); CO2 29 mmol/L (21-32); CREATININE 1.2 mg/dL (0.7-1.3); GLUCOSE 101 mg/dL (74-106); POTASSIUM 5.1 mmol/L (3.5-5.1); SODIUM 143 mmol/L (136-145)
[2018-03-04 13:52] LABS: ALBUMIN 2.8 g/dL (3.4-5.0); DIRECT BILIRUBIN < 0.1 mg/dL (<0.1-0.3); SGOT 28 U/L (15-37); SGPT 24 U/L (30-65); TOTAL BILIRUBIN 0.5 mg/dL (<0.1-1.0); TOTAL PROTEIN 6.2 g/dL (6.4-8.2)
[2018-03-04] MEDS ORDERED: LISINOPRIL20 MG PO ×2 (14:33→14:40)
[2018-03-04] MEDS ORDERED: FLOMAX0.4 MG PO (14:35)
[2018-03-04] MEDS ORDERED: HYDROCHLOROTHIA25 M2 (14:37)
[2018-03-04] MEDS ORDERED: HYDRALAZINE 2525 MG PO (14:43)
[2018-03-04] MEDS ORDERED: ELIQUIS5 MG (14:45)
[2018-03-04 16:27] LABS: CHOLESTEROL 156 mg/dL (<200); HDL CHOLESTEROL 49 mg/dL (>40); LDL CHOLESTEROL 89 mg/dL (<100); TC:HDL 3.2 Ratio (Not establshd); TRIGLYCERIDE 90 mg/dL (<150); VLDL 18 mg/dL (<40)
[2018-03-04] MEDS ORDERED: ELIQUIS5 MG PO (20:16)
[2018-03-04] MEDS ORDERED: METOPROLOL TART25 MG PO (20:19)
[2018-03-04] MEDS ORDERED: HYDROCHLOROTHIA25 M1 PO (20:21)
[2018-03-05 03:21] VITALS: BP 133/38
[2018-03-05 04:12] LABS: CALCIUM 8.4 mg/dL (8.5-10.1); CREATININE 1.3 mg/dL (0.7-1.3); POTASSIUM 4.3 mmol/L (3.5-5.1)
[2018-03-05 04:28] LABS: HEMATOCRIT 34.8 % (42.0-52.0); HEMOGLOBIN 11.5 gm/dL (14.0-18.0); MCH 31.6 pg (26.0-34.0); MCV 95.6 fL (80.0-100.0); RBC 3.64 mil/uL (4.50-6.00); RDW 14.5 % (10.5-14.5); WBC 9.3 thou/uL (4.0-11.0)
[2018-03-05 07:48] VITALS: BP 129/48
[2018-03-05 11:01] VITALS: BP 131/56
[2018-03-05 15:08] VITALS: BP 122/49
[2018-03-05 19:30] VITALS: BP 135/62
[2018-03-06 03:47] VITALS: BP 152/60
[2018-03-06 07:01] VITALS: BP 146/48
[2018-03-06 11:15] VITALS: BP 149/57
[2018-03-06 15:54] VITALS: BP 151/87
[2018-03-06 19:39] VITALS: BP 134/47
[2018-03-06 23:05] VITALS: BP 123/50
[2018-03-07 04:33] VITALS: BP 113/43
[2018-03-07 08:05] VITALS: BP 133/55
[2018-03-07 11:45] VITALS: BP 137/43
[2018-03-07] MEDS ORDERED: LIPITOR10 MG PO (11:50)
[2018-03-07 14:55] VITALS: BP 137/43
== END 2018-03-07 15:41 | DRG 242 ==
LOC: ER 12:45 → 2N 15:11 → EROBS 15:11 → 2N 16:58
PROVIDERS: Emergency Medicine; Hospitalist
PROC: 02HK3JZ Insertion of Pacemaker Lead into Right Ventricle, Percutaneous Approach (ICD-10-PCS; principal; 2018-03-07)
PROC: 0JH606Z Insertion of Pacemaker, Dual Chamber into Chest Subcutaneous Tissue and Fascia, Open Approach (ICD-10-PCS; principal; 2018-03-07)
PROC: 02H63JZ Insertion of Pacemaker Lead into Right Atrium, Percutaneous Approach (ICD-10-PCS; principal; 2018-03-07)
DX: I49.5 Sick sinus syndrome (principal); E43 Unspecified severe protein-calorie malnutrition; I69.951 Hemiplegia and hemiparesis following unspecified cerebrovascular disease affecting right dominant side; I10 Essential (primary) hypertension; I25.10 Atherosclerotic heart disease of native coronary artery without angina pectoris; F32.9 Major depressive disorder, single episode, unspecified; I48.0 Paroxysmal atrial fibrillation; E78.5 Hyperlipidemia, unspecified; E03.9 Hypothyroidism, unspecified; I35.1 Nonrheumatic aortic (valve) insufficiency; Z74.1 Need for assistance with personal care; M62.84 Sarcopenia; Z68.36 Body mass index [BMI] 36.0-36.9, adult; Z95.5 Presence of coronary angioplasty implant and graft; I25.2 Old myocardial infarction; Z98.49 Cataract extraction status, unspecified eye; Z89.021 Acquired absence of right finger(s); Z79.899 Other long term (current) drug therapy
CPT/HCPCS: 10081

== ENCOUNTER 2018-07-08 16:00 | Emergency (ER) | payer OTHER ==
[~2018-07-08] VITALS: Ht 180.3 cm; Wt 136.1 kg
[~2018-07-08 16:00] MED LIST changes: +ELIQUIS5 MG; +ELIQUIS5 MG PO; +FLOMAX0.4 MG PO; +HYDROCHLOROTHIA25 M1 PO; +HYDROCHLOROTHIA25 M2; +LIPITOR10 MG PO; +METOPROLOL TART25 MG PO
[2018-07-08] MEDS ORDERED: HYDROCODONE-AP1 EAC6 PO (17:40)
[2018-07-11] MEDS ORDERED: ALLOPURINOL 30300 M1 PO (08:59)
== END 2018-07-08 18:44 | disposition home or self-care (01) ==
LOC: ER 16:00
DX: S52.002A Unspecified fracture of upper end of left ulna, initial encounter for closed fracture (principal); S16.1XXA Strain of muscle, fascia and tendon at neck level, initial encounter; F17.220 Nicotine dependence, chewing tobacco, uncomplicated; I10 Essential (primary) hypertension; I25.10 Atherosclerotic heart disease of native coronary artery without angina pectoris; Z86.73 Personal history of transient ischemic attack (TIA), and cerebral infarction without residual deficits; F32.9 Major depressive disorder, single episode, unspecified; W05.2XXA Fall from non-moving motorized mobility scooter, initial encounter; Y93.89 Activity, other specified; Y92.89 Other specified places as the place of occurrence of the external cause; Y99.8 Other external cause status

== ENCOUNTER 2018-07-12 05:19 | Inpatient (IN) | payer OTHER ==
[~2018-07-12] VITALS: Ht 175.3 cm; Wt 135.2 kg
--- NOTE | ~2018-07-12 | O ---
[facility] [place] [address] OPERATIVE REPORT Name: MARIO JUÁREZ Room #: 353-P [facility] IN M.R.#: [id number] Admission: 07/12/18 Attend Phys: Raghav Khalil MD Discharge: Date of : 36 Report #: [id number] THIS REPORT FOR: //name// CC: Raghav Mancera DATE OF SERVICE: 07/12/2018 PREOPERATIVE DIAGNOSIS: Left proximal ulnar fracture. POSTOPERATIVE DIAGNOSIS: Left proximal ulnar fracture. PROCEDURE: Open reduction and internal fixation of left proximal ulnar fracture. SURGEON: Raghav Khalil MD INDICATIONS: This very frail, obese 78-year-old gentleman with multiple medical and cardiac problems, fell injuring the left elbow. X-rays confirm an oblique fracture at the proximal ulna just beyond the joint surface. We have discussed treatment options and elected to go ahead with surgical stabilization. The patient and family understand that he does have significant general medical and cardiac risks, but feel a nonsurgical management is unlikely to result in satisfactory healing and difficult nursing care and so I have elected to go ahead with surgical repair. DESCRIPTION OF PROCEDURE: The patient was taken to the operating room where he was placed under general anesthesia. Prophylactic intravenous antibiotics were administered. The left arm and hand were meticulously prepped and draped and positioned over a Staley stand across his chest. This allowed good exposure of the posterior aspect of the elbow and upper forearm. A tourniquet was inflated to 250 mmHg. A posterior longitudinal skin incision was made exposing the proximal ulna and oblique mildly unstable fracture was identified. The fracture was realigned and compressed with a small bone clamp. An Acumed proximal ulna locking fixation plate was then applied, 4 proximal screws and 4 distal screws were applied with 1 screw crossing the fracture site in oblique fashion creating some fracture compression. The fracture seemed to be nicely stabilized as the arm was tested past the elbow through a full range of motion. There was no crepitus at the joint and there did not seem to be any impingement. C-arm was used to visualize the fracture and the plate and screws which seemed to be in satisfactory position. The tourniquet was deflated. Good hemostasis was noted. The subcutaneous tissues were closed with 2-0 Monocryl. The skin was closed [address] [address] OPERATIVE REPORT Name: MARIO JUÁREZ Room #: 353-P [facility] IN ..#: [id number] Admission: 07/12/18 Attend Phys: Raghav Khalil MD Discharge: Date of : 36 Report #: [id number] with skin gerardo. Sterile dressing was applied. The patient was awakened and returned to recovery room in satisfactory condition. <ELECTRONICALLY SIGNED> By: Raghav Khalil MD 07/13/18 1145 1119 1158 Raghav Khalil MD /nt
[~2018-07-12 05:19] MED LIST changes: +ALLOPURINOL 30300 M1 PO; +HYDROCODONE-AP1 EAC6 PO
[2018-07-12 09:01] LABS: CALCIUM 9.7 mg/dL (8.5-10.1); CREATININE 1.6 mg/dL (0.7-1.3); POTASSIUM 4.7 mmol/L (3.5-5.1)
[2018-07-12 09:30] VITALS: BP 125/67
[2018-07-12 13:02] VITALS: BP 114/67
[2018-07-12 15:55] VITALS: BP 134/76
[2018-07-12 19:43] VITALS: BP 142/68
[2018-07-13 00:30] VITALS: BP 110/56
[2018-07-13 07:30] VITALS: BP 145/74
[2018-07-13 15:00] VITALS: BP 125/60
[2018-07-13 19:17] VITALS: BP 140/59
[2018-07-14 03:20] VITALS: BP 127/71
[2018-07-14 09:00] VITALS: BP 149/82
[2018-07-14 16:51] VITALS: BP 112/61
[2018-07-14 19:53] VITALS: BP 122/66
[2018-07-15 05:05] VITALS: BP 126/69
[2018-07-15 07:37] VITALS: BP 112/68
[2018-07-15 16:18] VITALS: BP 111/80
[2018-07-15 19:20] VITALS: BP 157/84
[2018-07-16 05:30] VITALS: BP 119/52
[2018-07-16 07:41] VITALS: BP 116/61
[2018-07-16 11:46] VITALS: BP 114/63
== END 2018-07-16 18:14 | DRG 510 ==
LOC: OR 05:19 → TBA 05:20 → OR 07:45 → 3W 10:13 → OR 14:26 → 3W 07-16 18:14
PROVIDERS: Orthopaedic Surgery
PROC: 0PSL04Z Reposition Left Ulna with Internal Fixation Device, Open Approach (ICD-10-PCS; principal; 2018-07-12)
DX: S52.022A Displaced fracture of olecranon process without intraarticular extension of left ulna, initial encounter for closed fracture (principal); N17.0 Acute kidney failure with tubular necrosis; I10 Essential (primary) hypertension; E03.9 Hypothyroidism, unspecified; W18.39XA Other fall on same level, initial encounter; F32.9 Major depressive disorder, single episode, unspecified; Z98.49 Cataract extraction status, unspecified eye; Y93.89 Activity, other specified; Z89.021 Acquired absence of right finger(s); Y92.89 Other specified places as the place of occurrence of the external cause; Y99.8 Other external cause status
CPT/HCPCS: 10779; 50010; 50101; 51412; 55430; 56525; 57091; 57178; 62110; 62900; 70005

== ENCOUNTER → 2019-11-21 | Outpatient (CLI) | payer OTHER | LOC: SJCVC 13:16 | DX: R94.31 Abnormal electrocardiogram [ECG] [EKG] (principal); I21.09 ST elevation (STEMI) myocardial infarction involving other coronary artery of anterior wall; R55 Syncope and collapse; I25.119 Atherosclerotic heart disease of native coronary artery with unspecified angina pectoris; I42.1 Obstructive hypertrophic cardiomyopathy; I10 Essential (primary) hypertension; Z79.899 Other long term (current) drug therapy ==